=== PATIENT | female | born 1960 | race Caucasian/White ===

== ENCOUNTER → 2020-12-08 | Outpatient (CLI) | payer OTHER ==
[~2020-12-08] VITALS: Ht 157.5 cm; Wt 51.3 kg
[~2020-12-08] MED LIST: EEMT HS 0.625-1 EACH PO; LOSARTAN POTAS100 MG PO; PROGESTERONE200 MG PO; SYNTHROID88 MC1 PO; VITAMIN D325 MC3 PO; ZINC50 M3 PO
--- NOTE | 2020-12-11 17:36 | P ---
[facility] [place] [address] PROCEDURE REPORT Name: LEVY ZEPEDA Room #: REG [facility]#: [id number] Admission: 12/08/20 Attend Phys: Jermaine Mayer Discharge: Date of : 64 Report #: [id number] THIS REPORT FOR: cc: Adryan Luevano Trystan J. DO McElhinney, Christian C. MD ~ cc: Adryan Luevano DATE OF SERVICE: 12/08/2020 PROCEDURE PERFORMED: Colonoscopy with biopsies. HISTORY OF PRESENT ILLNESS: The patient is a 60-year-old female who reports small amount of bright red blood per rectum recently. She denies any abdominal pain, no history of constipation or diarrhea. Last colonoscopy was in 2012 showing diverticulosis at that time. No family history of colon cancer. Plan is for colonoscopy. DESCRIPTION OF PROCEDURE: The risks and benefits of the procedure were explained to the patient, those risks including but not limited to bleeding, perforation and the risk of sedation. She understood these risks and gave informed consent. Digital rectal exam was initially performed, which was normal. Next, using a standard Olympus colonoscope, the scope was placed in the patient's anus and advanced under direct vision to the cecum. The overall prep was excellent. The cecum and ileocecal valve were normal in appearance. Terminal ileum was intubated and normal in appearance. Ascending transverse and descending colon were normal. In the sigmoid colon, there were few small scattered diverticula were noted. No evidence of inflammation or stigmata of recent bleeding. A single 3 mm sessile polyp was noted. This was removed with cold forceps. The rectal mucosa was normal. On retroflexion, a small internal hemorrhoid was noted. Close examination of the anal canal showed no evidence of anal fissure. The small external hemorrhoid was also noted. There was no evidence of bleeding. The scope was then withdrawn and the procedure terminated. The patient tolerated the procedure well. IMPRESSION: 1. Small colonic polyps. 2. Sigmoid diverticulosis. 3. Small internal and external hemorrhoid likely source of recent bleeding. No evidence of bleeding at this time. RECOMMENDATIONS: 1. Await biopsy results. 2. If polyp is hyperplastic, repeat in 10 years. If adenomatous polyps, repeat in 5 years. 3. Recommend high fiber diet. A script for Analpram was given today if [address] [address] PROCEDURE REPORT Name: LEVY ZEPEDA Room #: REG [facility] [place]#: [id number] Admission: 12/08/20 Attend Phys: Jermaine Mayer Discharge: Date of : 64 Report #: [id number] recurrent bleeding. Thank you for allowing me to participate in her care. <ELECTRONICALLY SIGNED> By: Jermaine Trujillo MD 12/11/20 1736 [id number] Jermaine Trujillo MD /brenda
--- NOTE | 2020-12-12 18:06 | PATH ---
[facility] [address] [place] [address] PATHOLOGY RPT PROCEDURE Name: LETTY ZEPEDA RAHAT Room #: REG [facility] Juan Miguel.#: [id number] Admission: 12/08/20 Date of : 64 Discharge: Report #: [id number] Path Case #: [id number] [facility] Accession Number: [id number] . 01 Material submitted: . sigmoid colon - SIGMOID POLYP . 01 Clinical history: . COLONOSCOPY BLOOD IN STOOL DIVERTICULOSIS, HEMORRHOIDS . 02 Diagnosis: Polyp, sigmoid polyp, endoscopic biopsy: - One fragment of a tubular adenoma; negative for high grade dysplasia. - Two fragments showing benign mucosa; negative for dysplasia. (IUV/db; 12/12/2020) [facility] 12/12/2020 1333 Local . 02 Electronically signed: . Eliana Craig MD, Pathologist NPI- [id number] . 01 Gross description: . Received in formalin labeled "Helt, Letty, sigmoid polyp" are multiple wylie-brown soft tissue fragments measuring in aggregate 0.4 x 0.3 x 0.1 cm. The specimen is submitted entirely in A1. ([facility]; 12/09/2020) [facility] 12/09/2020 1113 Local . 02 Pathologist provided ICD-10: D12.5 . 02 CPT . 198829 Specimen Comment: A courtesy copy of this report has been sent to [phone], [phone] Specimen Comment: [id number] Specimen Comment: Report sent to / DR VAZ Performed at: [address], [place] [id number] MD Manan Goncalves MD Phone: [phone] Performed at: [address] [id number] MD Eliana Craig MD Phone: [phone]
== END | disposition home or self-care (01) ==
LOC: GI 07:45
PROVIDERS: ATTEND Specialist
DX: K92.1 Melena (principal); D12.5 Benign neoplasm of sigmoid colon; K57.30 Diverticulosis of large intestine without perforation or abscess without bleeding; K64.8 Other hemorrhoids; K64.4 Residual hemorrhoidal skin tags; I10 Essential (primary) hypertension; Z85.850 Personal history of malignant neoplasm of thyroid; Z98.890 Other specified postprocedural states; Z79.899 Other long term (current) drug therapy; Z88.2 Allergy status to sulfonamides; Z88.6 Allergy status to analgesic agent
CPT/HCPCS: 62110; 62900